=== PATIENT | female | born 1970 | race Native Hawaiian/Other Pacific Islander ===

== ENCOUNTER 2018-05-17 15:01 | Outpatient (CLI) | payer OTHER | END 2018-05-17 15:02 | disposition home or self-care (01) | LOC: C.USIC 15:02 | DX: N92.5 Other specified irregular menstruation (principal) ==

== ENCOUNTER 2018-06-21 08:11 | Outpatient (CLI) | payer OTHER | END 2018-06-21 08:12 | disposition home or self-care (01) | LOC: C.PAT 08:11 | DX: N85.00 Endometrial hyperplasia, unspecified (principal) ==

== ENCOUNTER 2018-06-29 08:08 | Day surgery (SDC) | payer OTHER | END 2018-06-29 13:51 | disposition home or self-care (01) | LOC: C.SDS 08:08 | DX: N85.00 Endometrial hyperplasia, unspecified (principal) ==

== ENCOUNTER 2018-07-05 07:54 | Emergency (ER) | payer OTHER ==
[2018-07-05 07:54] VITALS: BMI 24.0
[2018-07-05] MEDS ORDERED: Sodium Chloride 0.9% 1,000 ML IV ONE (08:06)
--- NOTE | 2018-07-05 08:30 | C.PDOC ---
History Of Present Illness 47 year old female presents to the emergency department with complaints of vaginal bleeding since yesterday. Patient states that she has been bleeding heavily and reports using multiple pads. Patient states that she had a DNT done on 06-29-18 for "endometrial hyperplasia". Patient states that she called her OB- [facility] and was instructed to present to the ED. Patient has no other complaints at this time, and denies any vaginal pain. Time Seen by Provider: 07/05/18 08:05 Chief Complaint (Nursing): Female Genitourinary History Per: Patient History/Exam Limitations: no limitations Onset/Duration Of Symptoms: Days (1) Current Symptoms Are (Timing): Still Present Quality Of Discomfort: denies: "Pain" Associated Symptoms: denies: Fever, Chills, Nausea, Vomiting, Diarrhea, Urinary Symptoms Past Medical History Reviewed: Historical Data, Nursing Documentation, Vital Signs Vital Signs: Last Vital Signs Temp 99.4 F 07/05/18 07:56 Pulse 94 H 07/05/18 07:56 Resp 16 07/05/18 07:56 BP 100/64 07/05/18 07:56 Pulse Ox 99 07/05/18 07:56 Primary Care Provider: [place] - Medical History PMH: No Chronic Diseases Denies: Chronic Kidney Disease Surgical History: No Surg Hx Family History: States: No Known Family Hx - Social History Hx Tobacco Use: No Hx Alcohol Use: No Hx Substance Use: No - Immunization History Hx Tetanus Toxoid Vaccination: No Hx Influenza Vaccination: No Hx Pneumococcal Vaccination: No Review Of Systems Except As Marked, All Systems Reviewed And Found Negative. Constitutional: Negative for: Fever, Chills, Weakness Cardiovascular: Negative for: Chest Pain Respiratory: Negative for: Cough, Shortness of Breath Gastrointestinal: Negative for: Nausea, Vomiting, Abdominal Pain, Diarrhea Genitourinary: Positive for: Vaginal Bleeding. Negative for: Vaginal Discharge, Pelvic Pain Physical Exam - Physical Exam Appears: Non-toxic, No Acute Distress Skin: Normal Color, Warm, Dry Head: Atraumatic, Normacephalic Eye(s): bilateral: Normal Inspection, PERRL, EOMI Nose: Normal Oral Mucosa: Moist Neck: Normal, Supple Chest: Symmetrical, No Tenderness Cardiovascular: Rhythm Regular, No Murmur Respiratory: Normal Breath Sounds, No Rales, No Rhonchi, No Wheezing Gastrointestinal/Abdominal: Soft, No Tenderness, No Guarding, No Rebound Extremity: Normal ROM Neurological/Psych: Oriented x3, Normal Speech, Normal Cognition ED Course And Treatment - Laboratory Results Result Diagrams: 07/05/18 08:27 07/05/18 08:27 O2 Sat by Pulse Oximetry: 99 (RA) Pulse Ox Interpretation: Normal - CT Scan/US US Abdomen/Pelvis/Transvaginal Other Rad Studies (CT/US): Read By Radiologist, Radiology Report Reviewed CT/US Interpretation: IMPRESSION: Thick heterogeneous endometrium with possible blood flow. The possibility of polyp or endometrial lesion should be considered. The differential consideration include endometrial neoplasm. Please correlate clinically. Medical Decision Making Medical Decision Making: ro anemia/post op complication. b/p stable. no tachy. Plan: Blood Bank Type and Screen CMP Chemistry NaCl IV Fluids HCG Qualitative Urine Urinalysis US Transvaginal 11:32 US report discussed with Dr. Galvez, who advised to discharge the patient home on Provera 10mg. us report discussed with dr galvez. Patient currently reports having minimal vaginal bleeding. 11:36 Patient denies pelvic exam, states that bleeding has stopped. Disposition - Disposition Referrals: Cheryl Galvez MD [Staff Provider] - Disposition: HOME/ ROUTINE Disposition Time: 12:46 Condition: STABLE Additional Instructions: return to er with worsening. follow up with obygn Prescriptions: MedroxyPROGESTERone [Provera] 10 mg PO BID #14 tab Instructions: Dilation and Curettage (DC), Bleeding With Forms: [facility] (Ukrainian) - Clinical Impression Clinical Impression: Vaginal bleeding - Scribe Statement The provider has reviewed the documentation as recorded by the Scribe (Seun Smith) Provider Attestation: All medical record entries made by the Scribe were at my direction and personally dictated by me. I have reviewed the chart and agree that the record accurately reflects my personal performance of the history, physical exam, medical decision making, and the department course for this patient. I have also personally directed, reviewed, and agree with the discharge instructions and disposition.
[2018-07-05 08:42] LABS: BASO # 0.1 K/uL (0.0-0.2); BASO % 0.8 % (0.0-2.0); EOS # 0.1 K/uL (0.0-0.7); EOS % 2.2 % (0.0-4.0); HEMOGLOBIN 12.6 g/dL (11.0-16.0); LYMPH % 16.2 % (20.0-40.0); MEAN CELL VOLUME 90.4 fL (81.0-99.0); MEAN CORPUSCULAR HGB CONC 34.3 g/dL (33.0-37.0); MEAN PLATELET VOLUME 7.7 fL (7.2-11.7); MONO # 0.4 K/uL (0.0-0.8); MONO % 5.9 % (0.0-10.0); NEUT # 4.8 K/uL (1.8-7.0); NEUT % 74.9 % (50.0-75.0); NRBC % 0.1 % (0.0-2.0); RBC 4.07 Mil/uL (3.80-5.20); RED CELL DISTRIBUTION WIDTH 12.4 % (11.5-14.5); WHITE BLOOD COUNT 6.4 K/uL (4.8-10.8)
[2018-07-05 08:46] LABS: INR 1.1; PARTIAL THROMBOPLASTIN TIME 35.2 SECONDS (21-34); PROTHROMBIN TIME 11.6 SECONDS (9.7-12.2)
[2018-07-05 08:48] LABS: HCG,QUALITATIVE URINE NEGATIVE (NEGATIVE)
[2018-07-05 08:53] LABS: SQUAMOUS EPITHIAL < 1 /hpf (0-5); URINE BILIRUBIN NEGATIVE (NEGATIVE); URINE BLOOD 3+ (NEGATIVE); URINE CLARITY Clear (Clear); URINE COLOR LIGHT RED (YELLOW); URINE GLUCOSE (UA) NORMAL (Normal); URINE LEUKOCYTE ESTERASE NEG Leu/uL (Negative); URINE PROTEIN 2+ mg/dL (NEGATIVE); URINE UROBILINOGEN NORMAL mg/dL (0.2-1.0)
[2018-07-05 08:57] LABS: ALB/GLOB RATIO 1.3 (1.0-2.1); ALBUMIN 4.3 g/dL (3.5-5.0); ALT/SGPT 16 U/L (9-52); AST/SGOT 25 U/L (14-36); BLOOD UREA NITROGEN 9 mg/dL (7-17); CALCIUM 9.5 mg/dl (8.6-10.4); GFR NON-AFRICAN AMERICAN > 60
[2018-07-05 10:50] VITALS: TEMP 98.2
--- NOTE | 2018-07-05 11:17 | US ---
Date of service: 07/05/2018 HISTORY: vb s/p d and c COMPARISON: Comparison is made to the previous study dated 05/17/2018 TECHNIQUE: Transabdominal and endovaginal ultrasound examination of the pelvis was performed. FINDINGS: UTERUS: Measures 11.8 x 4.7 x 5.95 cm. Normal in size and appearance. No fibroid or other mass lesion seen. There is low-attenuation cyst at the uterine cervix likely represent nabothian cyst. ENDOMETRIUM: Measures 20.9 mm in diameter. The endometrium is heterogeneous and thick with possible small blood flow in the endometrium. The possibility of endometrial polyp or lesion cannot be excluded. CERVIX: No cervical abnormality identified. RIGHT OVARY: Measures 3 x 2 x 2.5 cm. No solid mass. Normal flow. There is cyst in right ovary measures 1.6 centimeter. LEFT OVARY: Measures 3.1 x 1.5 x 3.3 cm. No solid mass. Normal flow. Cyst in the left ovary measures 0.6 centimeter. FREE FLUID: No significant free fluid noted. OTHER FINDINGS: None. IMPRESSION: Thick heterogeneous endometrium with possible blood flow. The possibility of polyp or endometrial lesion should be considered. The differential consideration include endometrial neoplasm. Please correlate clinically.
[2018-07-05 11:45] VITALS: BP 95/78; PULSE 80; RESP 20
[2018-07-05 12:46] VITALS: O2SAT 99
== END 2018-07-05 11:55 | disposition home or self-care (01) ==
LOC: C.ER 07:54
DX: N93.9 Abnormal uterine and vaginal bleeding, unspecified (principal)
CPT/HCPCS: 76830; 76856; 80053; 81001; 84703; 85025; 85610; 85730; 86850; 86900; 96360; 99285; J7030